=== PATIENT | female | born 2000 | race Two or more races ===

== ENCOUNTER 2020-09-11 20:06 | Emergency (ER) | payer OTHER, SELFPAY ==
[2020-09-11 20:30] VITALS: RESP 20
[2020-09-11 20:40] VITALS: BP 145/109; PULSE 136; RESP 20; TEMP 36.9; O2SAT 97
--- NOTE | 2020-09-11 20:52 | ECG_ITS ---
Measurements Intervals [place] Rate: 116 P: 40 UT: 165 QRS: 26 QRSD: 93 T: 9 QT: 319 QTc: 445 Interpretive Statements SINUS TACHYCARDIA BORDERLINE T WAVE ABNORMALITY- INFERIOR LEADS BASELINE WANDER- III ABNORMAL ECG Electronically Signed On 09-12-2020 7:45:18 X RAY OPERATOR by Bogadn Flynn D.O.
--- NOTE | 2020-09-11 20:52 | PC.NURSE ---
2049 poison control notified case # [id number] spoke with Gordon orders given and dr cisneros notified
--- NOTE | 2020-09-11 20:53 | ED.OVERDOSE ---
HPI - Overdose General Chief Complaint: Overdose Stated Complaint: panic attack, swollowed pills Time Seen by Provider: 09/11/20 20:53 Source: patient and RN notes reviewed Mode of arrival: ambulatory Limitations: no limitations History of Present Illness HPI Narrative: Patient states that she is hearing voices. She continued to take more and more Cymbalta to get the voices to stop. She denies being suicidal. She admits that she has had significant depression and bipolar disease. She has not seen a psychiatrist in years. Associated symptoms only nausea. complaint: accidental overdose Onset (ago): hour(s) (6) Intent: other ( wanted to stop the voices in her head) Context: Accidental Overdose: other Associated symptoms: hallucinations ( auditory) Treatments Prior to Arrival: none Related Data Home Medications Medication Instructions Recorded Confirmed duloxetine 60 mg PO DAILY 09/11/20 09/11/20 ferrous sulfate [iron] 325 mg PO DAILY 09/11/20 09/11/20 metformin 1,000 mg PO BID 09/11/20 09/11/20 quetiapine 100 mg PO HS 09/11/20 09/11/20 sitagliptin [Januvia] 100 mg PO DAILY 09/11/20 09/11/20 Allergies Allergy/AdvReac Type Severity Reaction Status Date / Time fluoxetine [From Prozac] Allergy Hives Verified 09/11/20 20:57 ondansetron [From Zofran] Allergy Hives Verified 09/11/20 20:57 Review of Systems Review of Systems: All systems reviewed & are unremarkable except as noted in HPI and below PMFSH Past Medical History Medical History (Updated 09/12/20 @ 01:27 by Artem Banks MD) Arthritis Bipolar affect, depressed Depression Morbid obesity Surgical History Surgical History (Updated 09/11/20 @ 21:07 by Artem Banks MD) Hx of cholecystectomy Social History Social History (Updated 09/11/20 @ 21:07 by Artem Banks MD) Smoking status: Never smoker Alcohol intake: never Substance use: never Gender identity (if verbalized by the patient): Female Exam Const: General: healthy appearing and no acute distress Nutritional Appearance: well nourished and obese morbidly obese Orientation/consciousness: patient oriented x3 Limitations: no limitations HENMT: Head: normal to inspection Ears: external ears normal Eyes: Conjunctivae: conjunctivae normal Pupils: Equal, round and reactive pupils present EOM: EOMs intact bilaterally Neck: Neck: normal visual inspection Resp: Effort & Inspection: normal respiratory effort Auscultation: clear to auscultation bilaterally Cardio: Rate: tachycardic Rhythm: regular rhythm GI: GI Palp: Yes Soft to palpation, No Tenderness to palpation present (GI) and No Guarding due to palpation present (GI) Auscultation: normal bowel sounds Back/Spine/Pelvis: Cervical Spine: cervical ROM normal Thoracic/Lumbar Spine: thoraco-lumbar ROM normal Skin: General skin exam: normal color Rashes: no rashes Neuro: General: patient oriented x3, moves all extremities and no focal motor deficits Speech: normal speech Gait exam (Neuro): Normal gait present Motor exam (neuro): 5/5 motor strength present throughout and Motor abnormalities not present Extrem: General: normal to inspection and no clubbing, cyanosis or edema Psych: Appearance: grossly normal and well kempt Mental Status: mental status grossly normal Affect: Sad affect present Thought content: Yes Hallucination(s) present ( auditory) and Yes Depressive thoughts present Course Course Emergency Course: Patient declined to be inpatient at a psychiatric facility. She wishes to pursue further treatment as an outpatient. Vital Signs Vital signs: Vital Signs Respiratory Rate 20 09/11/20 20:30 Temperature 36.9 C 09/12/20 02:24 Pulse Rate 112 H 09/12/20 02:24 Respiratory Rate 18 09/12/20 02:24 Blood Pressure 141/89 H 09/12/20 02:24 Pulse Oximetry 98 09/12/20 02:24 MDM - Overdose Lab Data Attestation: I reviewed the patient's lab results. Result diagrams: 09/11/20 2
[2020-09-11] MEDS: METOCLOPRAMIDE HCL 10 MG TABLET PO (21:14)
[2020-09-11 21:20] LABS: Basophils Absolute Auto 0.05 K/mm3 (0.00-0.10); Basophils Percent Auto 0.3 % (0.0-1.0); Eosinophils Absolute Auto 0.12 K/mm3 (0.02-0.50); Eosinophils Percent Auto 0.8 % (1.0-6.0); Hematocrit 40.5 % (35.0-49.0); Hemoglobin 13.1 g/dL (12.0-15.0); Immature Granulocyte Absolute 0.07 K/mm3 (0.00-0.00); Immature Granulocyte Percent A 0.5 % (0.0-0.0); Lymphocytes Absolute Auto 3.07 K/mm3 (1.10-4.50); Lymphocytes Percent Auto 20.8 % (18.0-42.0); Mean Corpuscular HGB Conc 32.3 g/dL (32.0-36.0); Mean Corpuscular Hemoglobin 25.7 pg (27.0-31.0); Mean Corpuscular Volume 79.4 fL (78.0-102.0); Mean Platelet Volume 10.5 fl (9.2-11.8); Monocytes Absolute Auto 1.08 K/mm3 (0.10-0.90); Monocytes Percent Auto 7.3 % (2.0-11.0); Neutrophils Absolute Auto 10.4 K/mm3 (1.7-7.2); Neutrophils Percent Auto 70.3 % (50.0-70.0); Platelet Count Result 372 K/mm3 (150-420); Red Cell Distribution Width 15.2 % (11.6-14.4); White Blood Count 14.8 K/mm3 (4.8-10.8)
[2020-09-11 21:25] LABS: Amphetamine Screen Urine Negative (Negative); Barbiturate Screen Urine Negative (Negative); Benzodiazepines Screen Urine Negative (Negative); Cannabinoid Screen Urine Negative (Negative); Cocaine Screen Urine Negative (Negative); Methadone Screen Urine Negative (Negative); Opiate Screen Urine Negative (Negative); Phencyclidine Screen Urine Negative (Negative)
[2020-09-11 21:35] LABS: Alanine Aminotransferase 68 U/L (14-59); Alkaline Phosphatase 108 U/L (50-130); Anion Gap 11 mmol/L (8-16); Aspartate Amino Transferase 38 U/L (15-37); Bilirubin,Total 0.2 mg/dL (0.00-1.00); Blood Urea Nitrogen 12 mg/dL (7-18); Calcium 9.1 mg/dL (8.5-10.1); Carbon Dioxide 26 mmol/L (21-32); Chloride 104 mmol/L (98-108); Estimated CRCL calculation 115 ml/min; Estimated Glomerular Filt Rate > 60; Glucose 126 mg/dL (70-99); Magnesium 1.6 mg/dL (1.8-2.4); Osmolality Calculated 293 mOsm/kg (285-295); Potassium 3.9 mmol/L (3.5-5.1); Sodium 141 mmol/L (136-145); Total Protein 8.6 g/dL (6.4-8.2)
[2020-09-11 21:40] VITALS: BP 130/88; PULSE 120; RESP 20; O2SAT 98
[2020-09-11 21:46] LABS: Acetaminophen < 2 ug/mL (10-30)
[2020-09-11 22:43] VITALS: BP 123/71; PULSE 107; RESP 20; O2SAT 98
[2020-09-11 23:16] LABS: Add Urine Microscopic? NO; Appearance Urine Clear (Clear); Bilirubin Urine Negative (Negative); Blood Urine Negative (Negative); Color Urine Yellow (Yellow); Glucose Urine UA Negative (Negative); Ketones Urine Negative (Negative); Leukocyte Esterase Ur Negative LEU/UL (Negative); Nitrate Urine Negative (Negative); Protein Urine Negative (Negative); Specific Grav Ur 1.025 (1.010-1.020); Urobilinogen Urine 0.2 mg/dL (0.2-1.0)
[2020-09-11 23:33] LABS: Ethanol < 3 mg/dL (0-6)
[2020-09-12 00:07] VITALS: BP 131/84; PULSE 118; RESP 18; O2SAT 97
--- NOTE | 2020-09-12 00:45 | PC.NURSE ---
resumed care at 2300, pt resting per bed , talking with mother at bedside. 2330 pt up to bathroom. specimen to lab. pt and mother watching tv. no concerns voiced at this time. 0001 watching tv. 0030 no change in condition discussed plan of care with pt and mother. pt requesting out pt services at this time. informations given for [facility], [facility]. pt is from [facility] also recommended calling [facility] public health department for options within there country. pt and mother voiced understanding
--- NOTE | 2020-09-12 01:26 | PC.NURSE ---
Patient watching television, patients mother is at bedside.
--- NOTE | 2020-09-12 02:23 | PC.NURSE ---
pt states has only heard her name called one time since arrival to [facility]. feels comfortable with going home. erp discussed plan of care.
[2020-09-12 02:24] VITALS: BP 141/89; PULSE 112; RESP 18; TEMP 36.9; O2SAT 98
== END 2020-09-12 02:30 | disposition home or self-care (01) ==
PROVIDERS: Emergency Provider Emergency Medicine; PCP Family Medicine
DX: F33.1 Major depressive disorder, recurrent, moderate (principal); T50.901A Poisoning by unspecified drugs, medicaments and biological substances, accidental (unintentional), initial encounter
CPT/HCPCS: 36415; 80053; 80307; 81003; 83735; 85025; 93005; 99284; A9270